=== PATIENT | male | born 1995 | race Caucasian/White ===

== ENCOUNTER 2024-06-02 12:11 | Emergency (ER) | payer OTHER, SELFPAY ==
[2024-06-02 12:19] VITALS: BP 145/81; PULSE 97; RESP 17; TEMP 36.6; O2SAT 96; BMI 26.6
--- NOTE | 2024-06-02 13:07 | ED_ITS ---
HPI - Dizziness General: Chief Complaint: Dizziness Stated Complaint: Fluid in ears, dizziness Time Seen by Provider: 06/02/24 12:50 History of Present Illness: HPI Narrative: 28-year-old male presents to the ER [facility] complaint of having dizziness she is seen in outpatient urgent care which he was noted to have a cerumen impaction which was partially removed he was told he has some fluid behind his left ear he reports that he turns his head [id number] he does provoke the dizziness patient denies any recent head injury or trauma or any other associated symptoms. Associated symptoms: Denies chest pain, chills, headache(s), malaise, nausea, palpitations or vomiting Related Data Home Medications Medication Instructions Recorded Confirmed famotidine 20 mg tablet 20 mg PO DAILY 06/02/24 06/02/24 fluticasone propionate 50 1 spray intranasal BID PRN 06/02/24 06/02/24 mcg/actuation nasal allergies spray,suspension loratadine 10 mg tablet (Claritin) 10 mg PO DAILY PRN allergies 06/02/24 06/02/24 Previous Rx's Medication Instructions Recorded meclizine 50 mg tablet 50 mg PO BID PRN motion sickness 06/02/24 #30 tabs ondansetron 4 mg disintegrating 4 mg PO Q6H PRN nausea and 06/02/24 tablet vomiting #20 tabs prednisone 10 mg tablets in a dose 10 mg PO DIRECTED #21 ea 06/02/24 pack Allergies Allergy/AdvReac Type Severity Reaction Status Date / Time No Known Allergies Allergy Verified 06/02/24 12:22 Review of Systems General: Reports: 10 or more systems reviewed and unremarkable except in HPI and below Const: Denies: fever(s), chills, fatigue or malaise Eyes: Denies: change in vision or blurry vision Card: Denies: chest pain or palpitations Resp: Denies: dyspnea or productive cough GI: Denies: abdominal pain, nausea or vomiting : Denies: flank pain Musc: Denies: extremity pain or extremity swelling Skin/Breast: Denies: rash or pruritus Neuro: Reports: dizziness and vertigo; Denies: headache(s) Psych: Denies: anxiety or depression Mitchell/Lymph: Denies: easy bleeding All/Imm: Denies: urticaria, throat swelling or facial swelling Physical Exam Const: COMMON NORMALS: no acute distress, patient oriented x3 and healthy appearing HENMT: COMMON NORMALS: normocephalic and atraumatic HEAD & SCALP: normocephalic and atraumatic OTHER: Right TM partial cerumen impaction noted up against the eardrum no bleeding noted left TM reveals a mild serous otitis noted no obvious active infection Eye: COMMON NORMALS: Equal, round and reactive pupils present, EOMs intact bilaterally and negative for fundi normal bilaterally (Nystagmus noted to the left side) PUPIL: Yes Equal, round and reactive pupils present DIRECT OPHTHALMOSCOPY: No fundi normal bilaterally (Nystagmus noted to the left side) Neck/C-Spine: COMMON NORMALS: full ROM, supple and no JVD Lymph: LYMPHATIC: no lymphadenopathy noted Chest: COMMONS NORMALS: normal inspection of the chest and normal palpation of entire chest wall Resp: COMMON NORMALS: normal respiratory effort, No retractions and clear to auscultation bilaterally EFFORT & INSPECTION: Yes able to speak in complete sentences and Yes symmetric chest movement AUSCULTATION: clear to auscultation bilaterally Cardio: COMMON NORMALS: no JVD, regular rate and regular rhythm RATE: regular rate RHYTHM: regular rhythm GI: COMMON NORMALS: Normal to inspection, nondistended, normoactive bowel sounds present, Soft to palpation and non-tender INSPECTION: Yes normal to inspection PALPATION: Yes Soft to palpation : COMMON NORMALS: Yes no CVA tenderness BLADDER/KIDNEY EXAM: Yes no CVA tenderness Back/Pelvis: COMMON NORMALS: no CVA tenderness Extremity: COMMON NORMALS: normal to inspection and full ROM Neuro: COMMON NORMALS: patient oriented x3, CN's II-XII intact bilaterally, moves all extremities and no focal motor deficits Psych: COMMON NORMALS: mental status grossly normal, Normal thought process present, cooperative and normal affect THOUGHT PROCESS: Normal thought process present Skin: COMMON NORMALS: no rashes or lesions noted GENERAL SKIN EXAM: no rashes or lesions noted Course Vital Signs: Vital signs: Vital Signs Temperature 97.8 F 06/02/24 12:19 Pulse Rate 95 06/02/24 13:22 Respiratory Rate 17 06/02/24 12:19 Blood Pressure 145/81 06/02/24 12:19 Pulse Oximetry 97 06/02/24 13:22 Oxygen Delivery Me thod Room Air 06/02/24 13:22 MDM - Dizziness Medical Decision Making Due to patient's symptoms and condition will to provide the patient a dose of meclizine as well as some Zofran patient will be prescribed some steroids for home the right ear was flushed out by nursing staff there was a partial cerumen impaction up against the right TM. XR interpretation done by ED provider, pending radiology final review Discharge Plan Discharge Patient Disposition: Home Clinical Impression: Benign paroxysmal positional vertigo Qualifiers: Laterality: left Qualified Code(s): H81.12 - Benign paroxysmal vertigo, left ear Condition: Stable Prescriptions: New meclizine 50 mg tablet 50 mg PO BID PRN (Reason: motion sickness) Qty: 30 0RF ondansetron 4 mg tablet,disintegrating 4 mg PO Q6H PRN (Reason: nausea and vomiting) Qty: 20 0RF prednisone 10 mg tablets,dose pack 10 mg PO DIRECTED Qty: 21 0RF Rx Instructions: see taper instructions No Action famotidine 20 mg Tablet 20 mg PO DAILY fluticasone propionate [Flonase] 50 mcg/actuation [place],Suspension 1 spray INTRANASAL BID PRN (Reason: allergies) Rx Instructions: administer into each nostril loratadine [Claritin] 10 mg Tablet 10 mg PO DAILY PRN (Reason: allergies) Discharge Orders: Discharge ED (Routine); Ordered 06/02/24 Ordered By: Dharmesh Hobson Referrals: Mark Keene MD [Primary Care Provider] - 1-3 days Discharge Diet: Advance as tolerated and Usual diet Discharge Activity: Increase activity as tolerated Patient Instructions: Benign Paroxysmal Positional Vertigo (ED), Dizziness (ED) Activity Restrictions/Additional Instructions: Take medications as prescribed please limit any activities any bending or twisting and this will induce your additional vertigo and dizziness, please drink lots of fluids and external days as dehydration also can make her dizziness worse please further follow-up with primary care in 2 to 3 days and was to return the interim if any of your symptoms persist or worse. Until your dizziness has stopped please do not operate any motor vehicles. Coding Level of Care Code ED Associate Relations Specialist for Gayle Hoyt
[2024-06-02 13:22] VITALS: PULSE 95; O2SAT 97
[2024-06-02] MEDS: meclizine 25 mg tablet 50 MG PO (13:44)
[2024-06-02] MEDS: ondansetron 4 MG Tablet PO (13:44)
[2024-06-02 14:33] VITALS: BP 135/84; PULSE 77; O2SAT 94
== END 2024-06-02 14:52 | disposition home or self-care (01) ==
PROVIDERS: Emergency Provider Emergency Medicine; PCP Family Medicine
DX: H81.12 Benign paroxysmal vertigo, left ear (principal); H61.21 Impacted cerumen, right ear
CPT/HCPCS: 69209; 99283; J8597; Q0162